=== PATIENT | male | born 1955 | race Caucasian/White ===

== ENCOUNTER → 2016-06-11 | Outpatient (CLI) | payer MEDICAID ==
[~2016-06-11] MED LIST: CIPR500T87; FENO200C PO; FLOMAX; GABA300C PO; GEMFIBROZIL PO; HCTZ PO; LISI-170 PO; LOVA20TA2 PO; PYRIDIUM; SERT100T PO; ZOLP-413 PO
== END | disposition home or self-care (01) ==
LOC: CFH 08:39
PROVIDERS: ATTEND Internal Medicine Cardiovascular Disease
DX: I35.8 Other nonrheumatic aortic valve disorders (principal); I34.0 Nonrheumatic mitral (valve) insufficiency; I07.1 Rheumatic tricuspid insufficiency
CPT/HCPCS: 93306

== ENCOUNTER 2016-09-21 10:37 | Emergency (ER) | payer MEDICAID ==
[~2016-09-21] VITALS: Ht 175.3 cm; Wt 81.4 kg
[2016-09-21 10:41] VITALS: BP 170/94
== END 2016-09-21 11:19 | disposition home or self-care (01) ==
LOC: ED 11:17
DX: L24.9 Irritant contact dermatitis, unspecified cause (principal); I10 Essential (primary) hypertension; E78.5 Hyperlipidemia, unspecified
CPT/HCPCS: 99283

== ENCOUNTER 2018-03-09 05:46 | Inpatient (IN) | payer MEDICAID ==
[~2018-03-09] VITALS: Ht 175.3 cm; Wt 74.8 kg
--- NOTE | 2018-03-09 05:53 | NUR ---
ASSUMED CARE OF PATIENT. PT REPORTS A COUGH AND RIGHT FLANK PAIN. PT ALSO REPORTS HIS HOUSE HAS MICE IN IT AND THEIR DROPPINGS. PT IS ALSO ANXIOUS BECAUSE HE REPORTS HE IS GOING TO LOSE HIS HOME. VS STABLE. NO ACUTE DISTRESS NOTED. WILL CONTINUE TO MONITOR.
--- NOTE | 2018-03-09 06:05 | NUR ---
PT SEEN BY DR GUNTER, RN
[2018-03-09] MEDS ORDERED: SERT100T32 PO (06:23)
[2018-03-09] MEDS ORDERED: SODIUM CHLORIDE FLUSH 10ML SYR IVF ONE (06:30)
[2018-03-09 06:33] LABS: MEAN CORPUSCULAR HEMOGLOBIN 31.1 pg (27.5-34.5); MEAN CORPUSCULAR HGB CONC 34.9 g/dL (33.2-36.2); MEAN CORPUSCULAR VOLUME 89.1 fL (81-97); MEAN PLATELET VOLUME 7.9 fL (7.4-10.4); PLATELET COUNT 233 x10^3/uL (130-400); RED BLOOD COUNT 4.67 x10^6/uL (4.38-5.82); RED CELL DISTRIBUTION WIDTH 12.4 % (9.4-14.8)
[2018-03-09 06:48] LABS: ALBUMIN 3.8 g/dL (3.4-5.0); ANION GAP 6 mmol/L (5-15); CALCIUM 9.2 mg/dL (8.5-10.1); CHLORIDE 101 mmol/L (98-107)
[2018-03-09 06:53] LABS: ALANINE AMINOTRANSFERASE 25 U/L (12-78); ALKALINE PHOSPHATASE 103 U/L (45-117); BILIRUBIN,TOTAL 1.2 mg/dL (0.2-1.0); CREATININE 1.12 mg/dL (0.7-1.3); TOTAL PROTEIN 8.1 g/dL (6.4-8.2); TROPONIN I < 0.015 ng/mL (0.000-0.045)
--- NOTE | 2018-03-09 07:02 | NUR ---
REPORT GIVEN TO YEIMI JARAMILLO
[2018-03-09 07:15] LABS: MD YES
[2018-03-09 07:31] LABS: BAND#(MANUAL) 3.41 x10^3/uL; BANDS%(MANUAL) 15 % (0-7); SEG#(MANUAL) 17.93 x10^3/uL (1.8-6.8); SEGS% (MANUAL) 79 % (42-75)
[2018-03-09 07:32] LABS: <RBC MORPHOLOGY> NORMAL; LYMPH#(MANUAL) 0.45 x10^3/uL (1-3.4); LYMPHS% (MANUAL) 2 % (22-44); MONOS#(MANUAL) 0.91 x10^3/uL (0.3-2.7); MONOS% (MANUAL) 4 % (2-9); PMNS WITH VACUOLES 1+; TOXIC GRAN 1+
[2018-03-09 07:33] LABS: <PLATELET ESTIMATE> ADEQUATE; <PLT MORPHOLOGY> NORMAL PLT MORPH
[2018-03-09] MEDS ORDERED: SODIUM CHLORIDE 0.9% 1,000ML IVBOLUS ONE ×2 (08:00→09:30)
[2018-03-09] MEDS ORDERED: ACETAMINOPHEN 500 MG TABLET PO ONE (08:00)
[2018-03-09] MEDS ORDERED: AZITHROMYCIN 500 MG in SODIUM CHLORIDE 0.9% 250 ML IVPB ONE (08:00)
[2018-03-09] MEDS ORDERED: CEFTRIAXONE PMX 1GM/50ML 50 ML IV ONE (08:00)
[2018-03-09] MEDS ORDERED: CEFTRIAXONE PMX 1GM/50ML 50 ML ONE (08:18)
[2018-03-09] MEDS ORDERED: ACETAMINOPHEN 500 MG TABLET ONE (08:20)
--- NOTE | 2018-03-09 08:23 | NUR ---
pt to ct 2nd iv started re cta
[2018-03-09] MEDS ORDERED: OMNIPAQUE 350 MG/ML, 100ML BOTTLE ONE (08:38)
[2018-03-09] MEDS ORDERED: SODIUM CHLORIDE FLUSH 10ML SYR IVF PRN (09:30)
[2018-03-09] MEDS ORDERED: POLYETHYLENE GLYCOL 17 GM PACKET PO PRN (10:00)
[2018-03-09] MEDS ORDERED: DOCUSATE 100 MG CAPSULE PO PRN (10:00)
[2018-03-09] MEDS ORDERED: hydrALAzine 20 MG/ML, 1ML IVPush PRN (10:00)
[2018-03-09] MEDS ORDERED: ACETAMINOPHEN 325 MG TABLET PO PRN (10:00)
[2018-03-09] MEDS ORDERED: ONDANSETRON ODT 4 MG PO PRN (10:00)
[2018-03-09] MEDS ORDERED: GUAIFENESIN/DM 200-20MG, 10ML UDC PO PRN (10:00)
[2018-03-09] MEDS ORDERED: BISACODYL 10 MG SUPP PR PRN (10:00)
[2018-03-09] MEDS ORDERED: ONDANSETRON 2MG/ML, 2ML IVPush PRN (10:00)
[2018-03-09] MEDS ORDERED: LIDODERM 5% PATCH TD PRN (10:00)
[2018-03-09] MEDS ORDERED: ALBUTEROL SULFATE 2.5 MG/3 ML NPPB PRN (11:00)
[2018-03-09 11:06] VITALS: BP 91/54
[2018-03-09 11:44] LABS: HCT (SEDRATE) 41.6 % (39.2-51.8)
[2018-03-09 12:10] VITALS: BP 81/51
[2018-03-09] MEDS: PIPERACILLIN/TAZO/PMX 3.375GM 50 ML IV SCH ×2 (12:24→17:50)
[2018-03-09] MEDS: SODIUM CHLORIDE 0.9% 1,000 ML IV SCH ×2 (12:24→20:15)
[2018-03-09] MEDS: INSULIN LISPRO 100 UNITS/ML, PEN SQ-INSULIN SCH ×3 (12:33→21:46)
[2018-03-09] MEDS: methylPREDNISolone SOD SUCC 40 MG/ML IVPush SCH ×2 (12:38→17:50)
[2018-03-09] MEDS: ENOXAPARIN 40 MG/0.4 ML SQ SCH (12:39)
[2018-03-09 16:36] VITALS: BP 98/62
[2018-03-09 19:19] VITALS: BP 105/67
[2018-03-09] MEDS: FAMOTIDINE 20 MG TABLET PO SCH (20:15)
[2018-03-10] MEDS: methylPREDNISolone SOD SUCC 40 MG/ML IVPush SCH ×5 (00:01→23:07)
[2018-03-10] MEDS: PIPERACILLIN/TAZO/PMX 3.375GM 50 ML IV SCH ×5 (00:01→23:56)
[2018-03-10 02:53] VITALS: BP 106/66
[2018-03-10] MEDS: SODIUM CHLORIDE 0.9% 1,000 ML IV SCH (04:54)
[2018-03-10 05:50] LABS: MEAN CORPUSCULAR HEMOGLOBIN 31.3 pg (27.5-34.5); MEAN CORPUSCULAR HGB CONC 34.7 g/dL (33.2-36.2); MEAN CORPUSCULAR VOLUME 90.2 fL (81-97); PLATELET COUNT 178 x10^3/uL (130-400); RED BLOOD COUNT 3.74 x10^6/uL (4.38-5.82); RED CELL DISTRIBUTION WIDTH 12.7 % (9.4-14.8)
[2018-03-10 05:58] LABS: ANION GAP 7 mmol/L (5-15); CALCIUM 8.3 mg/dL (8.5-10.1); CHLORIDE 110 mmol/L (98-107)
[2018-03-10 06:10] LABS: CHOL/HDL RATIO 2.7; CHOLESTEROL, TOTAL 121 mg/dL (140-239); HDL CHOL % 37 % (26-37); HDL CHOLESTEROL (DIRECT) 45 mg/dL (40-60); LDL CHOLESTEROL,CALCULATED 60 mg/dL (54-169); LDL/HDL RATIO 1.3 (0.5-3.0); THYROID STIMULATING HORMONE 0.218 mIU/L (0.358-3.740); TRIGLYCERIDES 79 mg/dL (50-200); VLDL CHOLESTEROL 16 mg/dL (0-25)
[2018-03-10 06:19] LABS: MD YES
[2018-03-10 06:21] LABS: BAND#(MANUAL) 2.71 x10^3/uL; BANDS%(MANUAL) 11 % (0-7); LYMPH#(MANUAL) 1.23 x10^3/uL (1-3.4); LYMPHS% (MANUAL) 5 % (22-44); MONOS#(MANUAL) 0.74 x10^3/uL (0.3-2.7); MONOS% (MANUAL) 3 % (2-9); SEG#(MANUAL) 19.93 x10^3/uL (1.8-6.8); SEGS% (MANUAL) 81 % (42-75)
[2018-03-10 06:22] LABS: <PLATELET ESTIMATE> ADEQUATE; <PLT MORPHOLOGY> NORMAL PLT MORPH; <RBC MORPHOLOGY> NORMAL
[2018-03-10] MEDS: INSULIN LISPRO 100 UNITS/ML, PEN SQ-INSULIN SCH ×4 (07:00→19:58)
[2018-03-10 09:09] VITALS: BP 129/73
[2018-03-10] MEDS ORDERED: SERT50TA28 PO (10:00)
[2018-03-10] MEDS ORDERED: OLAN5TAB9 PO (10:00)
[2018-03-10] MEDS ORDERED: OXYB5TAB PO (10:00)
[2018-03-10] MEDS ORDERED: ATOR40TA78 PO (10:00)
[2018-03-10] MEDS: SERTRALINE 100MG TABLET PO SCH (11:11)
[2018-03-10] MEDS: ENOXAPARIN 40 MG/0.4 ML SQ SCH (11:11)
[2018-03-10] MEDS: FAMOTIDINE 20 MG TABLET PO SCH ×2 (11:11→19:57)
[2018-03-10 14:50] VITALS: BP 133/78
[2018-03-10 19:54] VITALS: BP 111/59
[2018-03-11] MEDS: methylPREDNISolone SOD SUCC 40 MG/ML IVPush SCH ×2 (04:56→12:06)
[2018-03-11 04:58] VITALS: BP 140/97
[2018-03-11] MEDS: PIPERACILLIN/TAZO/PMX 3.375GM 50 ML IV SCH ×2 (06:01→12:27)
[2018-03-11 06:24] LABS: MEAN CORPUSCULAR HEMOGLOBIN 31.1 pg (27.5-34.5); MEAN CORPUSCULAR HGB CONC 34.1 g/dL (33.2-36.2); MEAN CORPUSCULAR VOLUME 91.2 fL (81-97); MEAN PLATELET VOLUME 8.6 fL (7.4-10.4); PLATELET COUNT 204 x10^3/uL (130-400); RED BLOOD COUNT 3.95 x10^6/uL (4.38-5.82); RED CELL DISTRIBUTION WIDTH 12.9 % (9.4-14.8)
[2018-03-11 06:33] LABS: ANION GAP 7 mmol/L (5-15); CALCIUM 8.4 mg/dL (8.5-10.1); CHLORIDE 107 mmol/L (98-107)
[2018-03-11 06:42] LABS: CREATININE 1.11 mg/dL (0.7-1.3)
[2018-03-11 06:47] LABS: BASOPHILS % (AUTO) 0 % (0-1); EOSINOPHILS # (AUTO) 0.01 x10^3/uL (0-0.4); EOSINOPHILS % (AUTO) 0 % (1-7); LYMPHOCYTES # (AUTO) 0.64 x10^3/uL (1-3.4); LYMPHOCYTES % (AUTO) 3 % (22-44); MD SCAN; MONOCYTES # (AUTO) 0.44 x10^3/uL (0.2-0.8); MONOCYTES % (AUTO) 2 % (2-9); NEUTROPHILS # (AUTO) 19.75 x10^3/uL (1.8-6.8); NEUTROPHILS % (AUTO) 95 % (42-75)
[2018-03-11 07:43] VITALS: BP 182/97
[2018-03-11] MEDS: FAMOTIDINE 20 MG TABLET PO SCH (08:36)
[2018-03-11] MEDS: INSULIN LISPRO 100 UNITS/ML, PEN SQ-INSULIN SCH ×2 (08:36→12:05)
[2018-03-11] MEDS: SERTRALINE 100MG TABLET PO SCH (08:36)
[2018-03-11] MEDS: ENOXAPARIN 40 MG/0.4 ML SQ SCH (12:06)
== END 2018-03-11 14:40 | disposition left against medical advice (07) | DRG 871 ==
LOC: ED 07:48 → EDIP 09:21 → 3NE 10:10 → EDIP 10:13 → 4EST 10:44
PROVIDERS: ADMIT Hospitalist; ATTEND Hospitalist
DX: A41.9 Sepsis, unspecified organism (principal); J69.0 Pneumonitis due to inhalation of food and vomit; E87.1 Hypo-osmolality and hyponatremia; E11.9 Type 2 diabetes mellitus without complications; I10 Essential (primary) hypertension; J44.9 Chronic obstructive pulmonary disease, unspecified; G89.29 Other chronic pain; M54.5 Low back pain; Z53.21 Procedure and treatment not carried out due to patient leaving prior to being seen by health care provider; F32.9 Major depressive disorder, single episode, unspecified; M54.30 Sciatica, unspecified side; M54.16 Radiculopathy, lumbar region; F41.9 Anxiety disorder, unspecified; F15.90 Other stimulant use, unspecified, uncomplicated; F17.200 Nicotine dependence, unspecified, uncomplicated; Z82.49 Family history of ischemic heart disease and other diseases of the circulatory system; Z83.3 Family history of diabetes mellitus
CPT/HCPCS: 36415; 71046; 71275; 74230; 80048; 80053; 80061; 82962; 83605; 83880; 84145; 84439; 84443; 84484; 85025; 85651; 86140; 87040; 87181; 93005; 93306; 96365; 96366; 96375; 99291; G0378; J0456; J0696; J1650; J2543; Q9967; J1815; J2920; J7030; J7050

== ENCOUNTER 2018-03-22 15:16 | Emergency (ER) | payer MEDICAID ==
[~2018-03-22] VITALS: Ht 172.7 cm; Wt 70.8 kg
[~2018-03-22 15:16] MED LIST changes: +ATOR40TA78 PO; +OLAN5TAB9 PO; +OXYB5TAB PO; +SERT100T32 PO; +SERT50TA28 PO
[2018-03-22 15:23] VITALS: BP 179/88
[2018-03-22 16:17] LABS: BASOPHILS # (AUTO) 0.05 x10^3/uL (0-0.1); BASOPHILS % (AUTO) 1 % (0-1); EOSINOPHILS # (AUTO) 0.14 x10^3/uL (0-0.4); EOSINOPHILS % (AUTO) 2 % (1-7); LYMPHOCYTES # (AUTO) 1.54 x10^3/uL (1-3.4); LYMPHOCYTES % (AUTO) 20 % (22-44); MD NO; MEAN CORPUSCULAR HEMOGLOBIN 29.9 pg (27.5-34.5); MEAN CORPUSCULAR HGB CONC 32.9 g/dL (33.2-36.2); MEAN CORPUSCULAR VOLUME 90.8 fL (81-97); MEAN PLATELET VOLUME 7.4 fL (7.4-10.4); MONOCYTES # (AUTO) 0.68 x10^3/uL (0.2-0.8); MONOCYTES % (AUTO) 9 % (2-9); NEUTROPHILS % (AUTO) 69 % (42-75); PLATELET COUNT 428 x10^3/uL (130-400); RED BLOOD COUNT 3.91 x10^6/uL (4.38-5.82); RED CELL DISTRIBUTION WIDTH 12.6 % (9.4-14.8)
[2018-03-22 16:23] LABS: ANION GAP 4 mmol/L (5-15); CALCIUM 8.9 mg/dL (8.5-10.1); CHLORIDE 107 mmol/L (98-107)
--- NOTE | 2018-03-22 17:13 | NUR ---
Pt amb to 12 from lobby
--- NOTE | 2018-03-22 17:35 | NUR ---
PT AMBULATED TO ROOM WITH STEADY GAIT FROM LOBBY. NAD NOTED. RESP REGULAR AND UNLABORED. PT ASKED TO CHANGE INTO GOWN FOR MD EVALUATION. PT IN DOORWAY SPEAKING ON CELL PHONE. DR. PARMAR TO BEDSIDE TO ASSESS PT, PT NOT ACKNOWLEDGING STAFF. MD AND THIS RN TO RETURN FOR EVALUATION.
--- NOTE | 2018-03-22 17:40 | NUR ---
PT ELOPED, NO LONGER IN ROOM, BELONINGS GONE AND GOWN LAYING ON GURNEY. DISCUSSED WITH LITHOGRAPHIC RETOUCHER APPRENTICE LAUREN, LOSS PREVENTION ASSOCIATE JOSE LUIS, AND DR. PARMAR, ALL AWARE OF PT ELOPEMENT.
== END 2018-03-22 18:12 | disposition left against medical advice (07) ==
LOC: ED 18:06
DX: I10 Essential (primary) hypertension (principal); E78.5 Hyperlipidemia, unspecified; E11.9 Type 2 diabetes mellitus without complications
CPT/HCPCS: 36415; 71046; 80048; 82040; 85025; 99284